=== PATIENT | male | born 1985 | race Caucasian/White ===

== ENCOUNTER 2019-11-06 20:05 | Emergency (ER) | payer BC, OTHER ==
[~2019-11-06] VITALS: Ht 172.7 cm; Wt 104.3 kg
--- NOTE | 2019-11-06 20:09 | NUR ---
NOTIFIED JAMI W/ NURSING STAFF THAT PT CHECKED IN COMPLAINING OF CHEST HEAVINESS & R SHOULDER PAIN
[2019-11-06] MEDS ORDERED: ASPIRIN 81 MG CHEW (CHILDREN'S ASA) PO ONE (20:30)
[2019-11-06 20:36] LABS: BASOPHILS % (AUTO) 0 % (0-10); EOSINOPHILS # (AUTO) 0.3 10^3/uL (0.0-0.3); EOSINOPHILS % (AUTO) 3 % (0-10); HEMATOCRIT 47 % (40-54); HEMOGLOBIN 16.9 G/DL (13.3-17.7); LYMPHOCYTES # (AUTO) 3.6 X 10^3 (1.0-4.0); LYMPHOCYTES % (AUTO) 35 % (12-44); MEAN CORPUSCULAR HEMOGLOBIN 31 PG (25-34); MEAN CORPUSCULAR HGB CONC 36 G/DL (32-36); MEAN CORPUSCULAR VOLUME 85 FL (80-99); MEAN PLATELET VOLUME 8.8 FL (7.4-10.4); MONOCYTES # (AUTO) 0.6 X 10^3 (0.0-1.0); MONOCYTES % (AUTO) 6 % (0-12); NEUTROPHILS # (AUTO) 5.7 X 10^3 (1.8-7.8); NEUTROPHILS % (AUTO) 56 % (42-75); PLATELET COUNT 322 10^3/uL (130-400); RED CELL DISTRIBUTION WIDTH 12.9 % (10.0-14.5); WHITE BLOOD COUNT 10.2 10^3/uL (4.3-11.0)
[2019-11-06] MEDS ORDERED: ANTACID SUSP 30 ML UDC (MYLANTA) PO ONE (20:45)
[2019-11-06] MEDS ORDERED: LIDOCAINE 2% VISCOUS 15 ML UDC PO ONE (20:45)
--- NOTE | 2019-11-06 20:53 | ED Chest Pain ---
General Chief Complaint: Chest Pain Stated Complaint: CHEST HEAVY, R SHOULDER PAIN, UNABLE TO SLEEP History of Present Illness Date Seen by Provider: Nov 06, 2019 Time Seen by Provider: 20:30 Initial Comments 34-year-old male presents for midsternal chest pain that began at approximately 1500 today and radiates to his right shoulder. He has a history of GERD, but feels this pain is different. He works nights and has difficulty sleeping. He drinks 5-10 energy drinks a day, has quit smoking and is vaping, no PCP, no hx of diabetes or dyslipidemia. No family history of CAD or diabetes. Patient rates pain as 3 or 4/10. Patient reports increased stress and anxiety recently. He has never been evaluated or treated for anxiety. 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 po MANAGER FIELD SALES: No NTG SL MANAGER FIELD SALES: No Associated Symptoms: denies symptoms; No abdominal pain, No back pain, No diaphoresis, No dizziness, No edema, No fatigue, No fever/chills, No headache, No heartburn, No nausea/vomiting, No rash, No shortness of breath, No swelling/lump in chest, No syncope, No weakness Allergies and Home Medications Allergies Coded Allergies: No Known Drug Allergies (Unverified , 11/06/19) Home Medications Hydroxyzine Pamoate 25 Mg Capsule, 25 MG PO Q8H PRN for ANXIETY Prescribed by: THUAN MAI on 11/06/19 [id number] Patient Home Medication List Home Medication List Reviewed: Yes Review of Systems Review of Systems Constitutional: no symptoms reported, see HPI Respiratory: No Symptoms Reported, See HPI; Denies Cough, Denies Shortness of Air, Denies SOA With Exertion, Denies SOA at Rest Cardiovascular: See HPI, Chest Pain Gastrointestinal: See HPI; Denies Nausea, Denies Vomiting All Other Systems Reviewed Negative Unless Noted: Yes Past Pcuoisg-Dxcorz-Qetmqw Hx Past Med/Social Hx: Reviewed Nursing Past Med/Soc Hx Patient Social History Recent Foreign Travel: No Contact w/Someone Who Travel: No Physical Exam Vital Signs Vital Signs - First Documented 11/06/19 20:17 Temp 36.8 Pulse 110 Resp 18 B/P (MAP) 128/82 (97) Pulse Ox 96 O2 Delivery Room Air Capillary Refill : Height, Weight, BMI Height: '" Weight: lbs. oz. kg; BMI Method: General Appearance: No Apparent Distress, WD/WN HEENT: PERRL/EOMI, TMs Normal, Normal ENT Inspection, Pharynx Normal Neck: Full Range of Motion, Normal Inspection, Non Tender, Supple Respiratory: Chest Non Tender, Lungs Clear, Normal Breath Sounds Cardiovascular: Regular Rate, Rhythm, No Murmur, Normal Peripheral Pulses Gastrointestinal: Normal Bowel Sounds, Non Tender, Soft Neurologic/Psychiatric: Alert, Oriented x3, No Motor/Sensory Deficits, Normal Mood/Affect Skin: Normal Color, Warm/Dry Progress/Results/Core Measures Results/Orders Lab Results Laboratory Tests Test 11/06/19 20:25 Range/Units White Blood Count 10.2 4.3-11.0 10^3/uL Red Blood Count 5.55 4.35-5.85 10^6/uL Hemoglobin 16.9 13.3-17.7 G/DL Hematocrit 47 40-54 % Mean Corpuscular Volume 85 80-99 FL Mean Corpuscular Hemoglobin 31 25-34 PG Mean Corpuscular Hemoglobin Concent 36 32-36 G/DL Red Cell Distribution Width 12.9 10.0-14.5 % Platelet Count 322 130-400 10^3/uL Mean Platelet Volume 8.8 7.4-10.4 FL Neutrophils (%) (Auto) 56 42-75 % Lymphocytes (%) (Auto) 35 12-44 % Monocytes (%) (Auto) 6 0-12 % Eosinophils (%) (Auto) 3 0-10 % Basophils (%) (Auto) 0 0-10 % Neutrophils # (Auto) 5.7 1.8-7.8 X 10^3 Lymphocytes # (Auto) 3.6 1.0-4.0 X 10^3 Monocytes # (Auto) 0.6 0.0-1.0 X 10^3 Eosinophils # (Auto) 0.3 0.0-0.3 10^3/uL Basophils # (Auto) 0.0 0.0-0.1 10^3/uL Prothrombin Time 13.0 12.2-14.7 SEC INR Comment 1.0 0.8-1.4 Activated Partial Thromboplast Time 28 24-35 SEC Sodium Level 142 135-145 MMOL/L Potassium Level 4.0 3.6-5.0 MMOL/L Chloride Level 106 98-107 MMOL/L Carbon Dioxide Level 24 21-32 MMOL/L Anion Gap 12 5-14 MMOL/L Blood Urea Nitrogen 13 7-18 MG/DL Creatinine 1.15 0.60-1.30 MG/DL Estimat Glomerular Filtration Rate > 60 BUN/Creatinine Ratio 11 Glucose Level 111 H 70-105 MG/DL Calcium Level 9.8 8.5-10.1 MG/DL Corrected Calcium 8.5-10.1 MG/DL Magnesium Level 2.2 1.6-2.4 MG/DL Total Bilirubin 0.5 0.1-1.0 MG/DL Aspartate Amino Transf (AST/SGOT) 30 5-34 U/L Alanine Aminotransferase (ALT/SGPT) 65 H 0-55 U/L Alkaline Phosphatase 58 40-136 U/L Myoglobin 75.9 10.0-92.0 NG/ML Troponin I < 0.028 <0.028 NG/ML Total Protein 7.9 6.4-8.2 GM/DL Albumin 4.9 H 3.2-4.5 GM/DL My Orders Orders - THUAN MAI [employer] Cbc With Automated Diff (11/06/19 20:28) Magnesium (11/06/19 20:28) Chest 1 View, Ap/Pa Only (11/06/19:28) Ekg Tracing (11/06/19:) Comprehensive Metabolic Panel (11/06/19 20:28) Myoglobin Serum (11/06/19 20:28) Protime With Inr (11/06/19 20:28) Partial Thromboplastin Time (11/06/19 20:28) O2 (11/06/19 20:28) Monitor-Rhythm Ecg Trace Only (11/06/19 20:28) Ed Iv/Invasive Line Start (11/06/19 20:28) Troponin I (11/06/19 20:28) Aspirin Chewable Tablet (Baby Aspirin Ch (11/06/19 20:30) Lidocaine 2% Viscous 15 Ml (Xylocaine Vi (11/06/19 20:45) Antacid Suspension (Mylanta Suspension (11/06/19 20:45) Ed Iv/Invasive Line Start (11/06/19 21:19) Ns Iv 1000 Ml (Sodium Chloride 0.9%) (11/06/19 21:19) Hydroxyzine Cap/Tab (Vistaril) (11/06/19 22:45) Medications Given in ED Current Medications Medications Dose Ordered Sig/Meir Route Start Time Stop Time Status Last Admin Dose Admin Al Hydrox/Mg Hydrox/Simethicone 30 ml ONCE ONCE PO 11/06/19 20:45 11/06/19 20:46 DC 11/06/19 20:47 30 ML Aspirin 324 mg ONCE ONCE PO 11/06/19 20:30 11/06/19 20:31 DC 11/06/19 20:35 324 MG Hydroxyzine Pamoate 25 mg ONCE ONCE PO 11/06/19 22:45 11/06/19 22:45 DC 11/06/19 22:39 25 MG Lidocaine HCl 15 ml ONCE ONCE PO 11/06/19 20:45 11/06/19 20:46 DC 11/06/19 20:47 15 ML Vital Signs/I&O 11/06/19 11/06/19 11/06/19 20:17 20:17 22:43 Temp 36.8 36.8 Pulse 110 74 Resp 18 17 B/P (MAP) 128/82 (97) 131/87 (97) Pulse Ox 96 97 O2 Delivery Room Air Room Air Room Air 11/07/19 00:00 Intake Total 1000 ml Balance 1000 ml Progress Progress Note : Time: 20:30 Progress Note Patient seen and evaluated, will obtain labs, aspirin 324 mg orally, chest x-ray and EKG. 2114 labs and EKG essentially normal. Will give GI cocktail and reevaluate. 2199 patient noted mild no improvement with the GI cocktail. Will give normal saline 1 L per IV. Discussed at length the importance that he slowly start decreasing the amount of energy drinks that he is consuming daily. Also discussed the arms to his body from vaping. Discussed the importance of getting adequate sleep. 2229 patient reports his symptoms are improving. He does feel this may be related to anxiety and stress. We'll try Vistaril 25 mg orally. Stressed the importance of him following up and establishing care with a primary care provider. Discharge instructions and return precautions reviewed with him. Initial ECG Impression Date: Nov 06, 2019 Initial ECG Impression Time: 20:26 Initial ECG Rate: 105 Initial ECG Rhythm: S.Tach Initial ECG Intervals: Normal Initial ECG Intervals LA 160, QRSD 76, QT 328, QTc 434. [place] P 39, QRS 34, T7 Initial ECG Impression: Normal Initial ECG Comparisson: No Previous ECG Available Diagnostic Imaging Diagonstic Imaging: Xray Plain Films/CT/US/NM/MRI: chest Comments NAME: FAROOQ QIU [facility] REC#: [id number] PT STATUS: REG ER : 1985 PHYSICIAN: THUAN MAI ADMIT DATE: 11/06/19/ER Draft Date of Exam:11/06/19 CHEST 1 VIEW, AP/PA ONLY INDICATION: Chest pain. COMPARISON: No prior examination is available for comparison. EXAMINATION: Single view of the chest was obtained. FINDINGS: The heart size, mediastinal configuration, and pulmonary vascularity are within normal limits. There is no pleural effusion, pneumothorax or pneumonia. The osseous structures are unremarkable. IMPRESSION: No acute cardiopulmonary abnormality. Dictated on workstation # [id number] Dict: 11/06/192054 Trans: 11/06/192058 [facility] [id number] Interpreted by: LIZETT CRAMER MD Electronically signed by: Reviewed: Reviewed by Me Departure Impression Primary Impression: Non-cardiac chest pain Additional Impressions: Anxiety Caffeine abuse Disposition: HOME, SELF-CARE Condition: Improved Departure-Patient Inst. Decision time for Depature: 22:30 [address]errals: [facility] [place] NO,LOCAL PHYSICIAN (PCP) Primary Care Physician Patient Instructions: Chest Pain That Is Not Caused by the Heart (DC), Anxiety, Adult (DC) Add. Discharge Instructions: Increase water intake and slowly decreasing energy drinks and consuming. Establish care with a primary care provider. Decrease or stop vaping. Use of Vistaril 1 tablet every 8 hours as needed for anxiety. Return to the emergency department for chest pain, difficulty breathing, or new urgent health care needs. All discharge instructions reviewed with patient and/or family. Voiced understanding. Scripts Hydroxyzine Pamoate (Vistaril) 25 Mg Capsule 25 MG PO Q8H PRN for ANXIETY, #30 CAP 0 Refills Prov: THUAN MAI 11/06/19 Work/School Note: Work Release Form Date Seen in the Emergency Department: Nov 06, 2019 Return to Work: Nov 07, 2019 Restrictions: No Restrictions THUAN MAI Nov 06, 2019 20:53
[2019-11-06 20:57] LABS: ALANINE AMINOTRANSFERASE 65 U/L (0-55); ALBUMIN 4.9 GM/DL (3.2-4.5); ALKALINE PHOSPHATASE 58 U/L (40-136); BILIRUBIN,TOTAL 0.5 MG/DL (0.1-1.0); BUN/CREATININE RATIO 11; CALCIUM 9.8 MG/DL (8.5-10.1); CARBON DIOXIDE 24 MMOL/L (21-32); CHLORIDE 106 MMOL/L (98-107); CREATININE SERUM 1.15 MG/DL (0.60-1.30); GFR ESTIMATED > 60; GLUCOSE 111 MG/DL (70-105); MAGNESIUM 2.2 MG/DL (1.6-2.4); SODIUM 142 MMOL/L (135-145); TOTAL PROTEIN 7.9 GM/DL (6.4-8.2)
--- NOTE | 2019-11-06 20:59 | Diagnostic Imaging Report ---
INDICATION: Chest pain. COMPARISON: No prior examination is available for comparison. EXAMINATION: Single view of the chest was obtained. FINDINGS: The heart size, mediastinal configuration, and pulmonary vascularity are within normal limits. There is no pleural effusion, pneumothorax or pneumonia. The osseous structures are unremarkable. IMPRESSION: No acute cardiopulmonary abnormality. Dictated by: Dictated on workstation # [id number]
[2019-11-06] MEDS ORDERED: NS IV 1000 ML 1,000 ML IV SCH (21:19)
[2019-11-06] MEDS ORDERED: HYDR25CA PO (22:34)
[2019-11-06 22:43] VITALS: BP 131/87
[2019-11-06] MEDS ORDERED: hydrOXYzine (VISTARIL/ATARAX) 25 MG capsule/tablet PO ONE (22:45)
== END 2019-11-06 22:45 | disposition home or self-care (01) ==
LOC: EDUNIT# 20:05 → ER 20:07
DX: R07.89 Other chest pain (principal); F41.9 Anxiety disorder, unspecified; F15.10 Other stimulant abuse, uncomplicated; F17.290 Nicotine dependence, other tobacco product, uncomplicated
CPT/HCPCS: 36415; 71045; 80053; 83735; 83874; 84484; 85025; 85610; 85730; 93005; 93041

== ENCOUNTER 2020-01-03 02:50 | Emergency (ER) | payer BC ==
[~2020-01-03] VITALS: Ht 175 cm; Wt 106.6 kg
[~2020-01-03 02:50] MED LIST: HYDR25CA PO
[2020-01-03 02:55] VITALS: BP 140/97
--- OUTSIDE RECORDS SUMMARY | 2020-01-03 02:56 | XMS REPORT | Continuity of Care Document ---
Author Organization Unknown Address Unknown Phone Unavailable Allergies Active Description Code Type Severity Reaction Onset Reported/Identified Relationship to Patient Clinical Status Yes No Known Drug Allergies [id number] Drug Allergy Unknown N/A 11/06/2019 Medications There is no data. Problems Date Dx Coded Attending Type Code Diagnosis Diagnosed By 11/06/2019 THUAN MAIP Ot F15.10 OTHER STIMULANT ABUSE, UNCOMPLICATED 11/06/2019 PAU, THUAN HEMODIALYSIS RN Ot F17.290 NICOTINE DEPENDENCE, OTHER TOBACCO PRODU 11/06/2019 PAU, THUAN HEMODIALYSIS RN Ot F41.9 ANXIETY DISORDER, UNSPECIFIED 11/06/2019 PAU, THUAN HEMODIALYSIS RN Ot R07.89 OTHER CHEST PAIN Procedures There is no data. Results Test Result Range Complete blood count (CBC) with automate d white blood cell (WBC) differential - 11/06/19 20:25 Blood leukocytes automated count (number/volume) 10.2 10*3/uL 4.3-11.0 Blood erythrocytes automated count (number/volume) 5.55 10*6/uL 4.35-5.85 Venous blood hemoglobin measurement (mass/volume) 16.9 g/dL 13.3-17.7 Blood hematocrit (volume fraction) 47 % 40-54 Automated erythrocyte mean corpuscular volume 85 [ foz_us] 80-99 Automated erythrocyte mean corpuscular h emoglobin (mass per erythrocyte) 31 pg 25-34 Automated erythrocyte mean corpuscular h emoglobin concentration measurement (mass/volume) 36 g/dL 32-36 Automated erythrocyte distribution width ratio 12. 9 % 10.0- 14.5 Automated blood platelet count (count/volume) 322 10*3/uL 130-400 Automated blood platelet mean volume measurement 8.8 [foz_us] 7.4-10.4 Automated blood neutrophils/100 leukocytes 56 % 42-75 Automated blood lymphocytes/100 leukocytes 35 % 12-44 Blood monocytes/100 leukocytes 6 % 0-12 Automated blood eosinophils/100 leukocytes 3 % 0-10 Automated blood basophils/100 leukocytes 0 % 0-10 Blood neutrophils automated count (number/volume) 5.7 10*3 1.8-7.8 Blood lymphocytes automated count (number/volume) 3.6 10*3 1.0-4.0 Blood monocytes automated count (number/volume) 0. 6 10*3 0.0-1.0 Automated eosinophil count 0.3 10*3/uL 0 .0-0.3 Automated blood basophil count (count/volume) 0.0 10*3/uL 0.0-0.1 PT panel in platelet poor plasma by coag ulation assay - 11/06/19 20:25 Prothrombin time (PT) in platelet poor plasma by coagu lation assay 13.0 s 12.2-14.7 INR in platelet poor plasma or blood by coagulation as say 1.0 0.8-1.4 Activated partial thromboplastin time (a PTT) in platelet poor plasma bycoagulation assay - 11/06/19 20:25 Activated partial thromboplastin time (a PTT) in platelet poor plasma bycoagulation assay 28 s 24-35 Comprehensive metabolic panel - 11/06/19 20:25 Serum or plasma sodium measurement (moles/volume) 142 mmol/L 135-145 Serum or plasma potassium measurement (moles/volume) 4.0 mmol/L 3.6-5.0 Serum or plasma chloride measurement (moles/volume) 106 mmol/L 98-107 Carbon dioxide 24 mmol/L 21-32 Serum or plasma anion gap determination (moles/volume) 12 mmol/L 5-14 Serum or plasma urea nitrogen measurement (mass/volume ) 13 mg/dL 7-18 Serum or plasma creatinine measurement (mass/volume) 1.15 mg/dL 0.60-1.30 Serum or plasma urea nitrogen/creatinine mass ratio 11 NRG Serum or plasma creatinine measurement w ith calculation of estimated glomerular filtration rate > NRG Serum or plasma glucose measurement (mass/volume) 111 mg/dL 70-105 Serum or plasma calcium measurement (mass/volume) 9.8 mg/dL 8.5-10.1 Serum or plasma total bilirubin measurement (mass/volu me) 0.5 mg/dL 0.1-1.0 Serum or plasma alkaline phosphatase tanesha surement (enzymatic activity/volume) 58 U/L 40-136 Serum or plasma aspartate aminotransfera se measurement (enzymatic activity/volume) 30 U/L 5-34 Serum or plasma alanine aminotransferase measurement (enzymatic activity/volume) 65 U/L 0-55 Serum or plasma protein measurement (mass/volume) 7.9 g/dL 6.4-8.2 Serum or plasma albumin measurement (mass/volume) 4.9 g/dL 3.2-4.5 Magnesium - 11/06/19 20:25 Magnesium 2.2 mg/dL 1.6-2.4 Myoglobin, serum - 11/06/19 20:25 Myoglobin, serum 75.9 ng/mL 10.0-92.0 Serum or plasma troponin i.cardiac measu rement (mass/volume) - 11/06/19 20:25 Serum or plasma troponin i.cardiac measurement (mass/v olume) < ng/mL <0.028 Encounters ACCT No. Visit Date/Time Discharge Status Pt. Type Provider Facility Loc./Unit Complaint [id number] 11/06/2019 20:07:00 020 22:45:00 DIS Emergency THUAN MAI Via [facility] ER CHEST HEAVY, R SHOULDER PAIN, UNABLE TO SLEEP
[2020-01-03 03:13] LABS: BILIRUBIN,URINE NEGATIVE (NEGATIVE); CLARITY,URINE CLEAR; COLOR,URINE YELLOW; GLUCOSE, URINE (UA) NEGATIVE (NEGATIVE); KETONES,URINE NEGATIVE (NEGATIVE); LEUKOCYTE ESTERASE ,URINE NEGATIVE (NEGATIVE); NITRITE,URINE NEGATIVE (NEGATIVE); PH,URINE 5.5 (5-9); PROTEIN,URINE NEGATIVE (NEGATIVE)
[2020-01-03 03:20] LABS: BACTERIA,URINE NEGATIVE /HPF; RBC,URINE 0-2 /HPF; SQUAMOUS EPITHELIAL CELL,UR RARE /HPF
[2020-01-03] MEDS ORDERED: RX-CYCLOBENZAPRINE 10 MG (FLEXERIL) TAB PPK#3 PO STA (03:27)
[2020-01-03] MEDS ORDERED: RX-NAPROXEN (NAPROSYN) 250 MG TAB PPK#4 PO STA (03:27)
[2020-01-03] MEDS ORDERED: CYCL10TA9 PO (03:30)
[2020-01-03] MEDS ORDERED: MELO15TA14 PO (03:30)
--- NOTE | 2020-01-03 03:30 | ED Back Pain ---
General Chief Complaint: Back Problems Stated Complaint: LOWER BACK PAIN Nursing Triage Note: right lower back pain x2 hrs denies injury. Nursing Sepsis Screen: No Definite Risk Source of Information: Patient History of Present Illness Date Seen by Provider: Jan 03, 2020 Time Seen by Provider: 03:00 Initial Comments PT ARRIVES VIA POV FROM WORK AT [employer]-DROVE HIMSELF HERE, LEFT WORK EARLY ( SUPPOSED TO WORK UNTIL 0600 ) PT C/O LOWER BACK PAIN, MORE ON RIGHT SIDE BEGAN AROUND MIDNIGHT, WHEN GIRLFRIEND BROUGHT HIM LUNCH TO WORK. 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 --IS ONLY UNUSUAL ACTIVITY THAT HE HAS DONE RECENTLY NO RADIATION OF PAIN NO PARESTHESIAS OR MOTOR DEFICITS NO PROBLEMS WITH BOWEL OR BLADDER FUNCTION PAIN IS WORSE WITH SITTING, BETTER WITH STANDING / WALKING OR LAYING ON HIS STOMACH NO HISTORY OF BACK PAIN HAS NOT TAKEN ANYTHING FOR PAIN--STATES HE "HATES TO TAKE ANY MEDICATION" Other Comments PCP: [facility] Allergies and Home Medications Allergies Coded Allergies: No Known Drug Allergies (Unverified , 11/06/19) Home Medications Cyclobenzaprine HCl 10 Mg Tablet, 10 MG PO Q8H PRN for SPASMS Prescribed by: DEMOND FOSTER on 01/03/20329 Meloxicam 15 Mg Tablet, 15 MG PO DAILY Prescribed by: DEMOND FOSTER on 01/03/20329 Patient Home Medication List Home Medication List Reviewed: Yes Review of Systems Constitutional: no symptoms reported EENTM: no symptoms reported Respiratory: no symptoms reported Cardiovascular: no symptoms reported Gastrointestinal: no symptoms reported Genitourinary: no symptoms reported Musculoskeletal: see HPI, back pain Skin: no symptoms reported; No rash Psychiatric/Neurological: No Symptoms Reported; Denies Numbness, Denies Paresthesia, Denies Tingling, Denies Weakness DRINKS AT LEAST 10-12 ENERGY DRINKS EVERY DAY Past Vmjqoor-Wtwlkj-Kycsjx Hx Past Med/Social Hx: Reviewed and Corrections made Patient Social History Alcohol Use: Denies Use Recreational Drug Use: No Smoking Status: Current Everyday Smoker (1 PPD) Type Used: Cigarettes, Electronic/Vapor 2nd Hand Smoke Exposure: Yes Recent Foreign Travel: No Contact w/Someone Who Travel: No Recent Infectious Disease Expo: No Recent Hopitalizations: No Physical Abuse: No Sexual Abuse: No Mistreated: No Fear: No Immunizations Up To Date Tetanus Booster (TDap): Unknown Seasonal Allergies Seasonal Allergies: No Past Medical History Surgeries: Yes (RIGHT CALF INJURY WITH SURGERY A CHILD) Adenoidectomy, Tonsillectomy Respiratory: No Cardiac: No Neurological: No Genitourinary: No Gastrointestinal: No Musculoskeletal: Yes (R CALF INJURY A CHILD-R CALF IS SMALLER THAN L, WITH DECREASED ROM OF FT) Endocrine: No HEENT: No Cancer: No Psychosocial: Yes Anxiety Integumentary: No Blood Disorders: No Family Medical History DRINKS AT LEAST 10-12 ENERGY DRINKS EVERY DAY Physical Exam Vital Signs Vital Signs - First Documented 01/03/20 02:55 Temp 36.9 Pulse 79 Resp 16 B/P (MAP) 140/97 (111) Pulse Ox 97 O2 Delivery Room Air Capillary Refill : Less Than 3 Seconds Height, Weight, BMI Height: '" Weight: lbs. oz. kg; 34.00 BMI Method: General Appearance: No Apparent Distress, WD/WN, Other (WALKS UPRIGHT AND MOVES WITHOUT DIFFICULTY. DOES NOT APPEAR TO BE IN ANY DISCOMFORT OR DISTRESS, SITTING UPRIGHT WITH LEGS SWINGING OFF SIDE OF BED, TEXTING/PLAYING ON PHONE, SMILING, TALKATIVE. ) Neck: Full Range of Motion, Normal Inspection, Non Tender, Supple Cardiovascular: Regular Rate, Rhythm, No Edema, No JVD, No Murmur, Normal Peripheral Pulses Respiratory: Normal Breath Sounds, No Accessory Muscle Use, No Respiratory Distress Peripheral Pulses: 2+ Dorsalis Pedis (R), 2+ Left Dors-Pedis (L) Gastrointestinal: Non Tender, Soft Back: Other (DIFFUSE LUMBAR TENDERNESS, WITH TENDERNESS AND SPASMS TO RIGHT PARAVERTEBRAL AREA, RIGHT FLANK AREA, WITH MARKED PINPOINT TENDERNESS OVER RIGHT SI JOINT--PALPATION REPRODUCES PAIN. NEGATIVE STRAIGHT LEG RAISING. DTR'S INTACT BILATERALLY. FULL ROM. 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 Norm as Tested; No Abnormal Cerebellar Tests, No Abnormal Gait Skin: Normal Color, Warm/Dry; No Rash Progress/Results/Core Measures Results/Orders Lab Results Laboratory Tests Test 01/03/20 03:00 Range/Units Urine Color YELLOW Urine Clarity CLEAR Urine pH 5.5 5-9 Urine Specific Park >=1.030 1.016-1.022 Urine Protein NEGATIVE NEGATIVE Urine Glucose (UA) NEGATIVE NEGATIVE Urine Ketones NEGATIVE NEGATIVE Urine Nitrite NEGATIVE NEGATIVE Urine Bilirubin NEGATIVE NEGATIVE Urine Urobilinogen 0.2 < = 1.0 MG/DL Urine Leukocyte Esterase NEGATIVE NEGATIVE Urine RBC (Auto) TRACE-L NEGATIVE Urine RBC 0-2 /HPF Urine WBC NONE /HPF Urine Squamous Epithelial Cells RARE /HPF Urine Crystals NONE /LPF Urine Bacteria NEGATIVE /HPF Urine Casts NONE /LPF Urine Mucus SMALL H /LPF Urine Culture Indicated NO My Orders Orders - DEMOND FOSTER DO Ua Culture If Indicated (01/03/20 02:59) Rx-Cyclobenzaprine Tablet (Rx-Flexeril T (01/03/20 03:27) Rx-Naproxen (Rx-Naprosyn) (01/03/20 03:27) Vital Signs/I&O 01/03/20 02:55 Temp 36.9 Pulse 79 Resp 16 B/P (MAP) 140/97 (111) Pulse Ox 97 O2 Delivery Room Air Blood Pressure Mean: 111 Departure Impression Primary Impression: Low back pain Disposition: 01 HOME, SELF-CARE Condition: Stable Departure-Patient Inst. Referrals: NO,LOCAL PHYSICIAN (PCP/Family) Primary Care Physician Patient Instructions: Low Back Pain (DC), Muscle Strain (DC) Add. Discharge Instructions: ALTERNATE ICE AND HEAT TO AREA AT 20 MINUTE INTERVALS NO LIFTING OVER 5 LBS, NO TWISTING OR BENDING AT WAIST UNTIL YOUR PAIN IS GONE FOLLOW UP WITH [facility] IN 2-3 DAYS IF NO BETTER All discharge instructions reviewed with patient and/or family. Voiced understanding. Scripts Meloxicam (Mobic) 15 Mg Tablet 15 MG PO DAILY, #10 TAB Prov: DEMOND FOSTER DO 01/03/20 Cyclobenzaprine HCl (Cyclobenzaprine HCl) 10 Mg Tablet 10 MG PO Q8H PRN for SPASMS, #15 TAB 0 Refills Prov: DEMOND FOSTER DO 01/03/20 DEMOND FOSTER DO Jan 03, 2020 03:30
== END 2020-01-03 03:33 | disposition home or self-care (01) ==
LOC: EDUNIT# 02:50 → ER 02:51
DX: M54.5 Low back pain (principal); F17.210 Nicotine dependence, cigarettes, uncomplicated; F41.9 Anxiety disorder, unspecified
CPT/HCPCS: 81000; 99283